=== PATIENT | male | born 1970 | race Hispanic/Latino ===

== ENCOUNTER 2017-08-08 12:43 | Emergency (ER) | payer OTHER ==
[2017-08-08 12:51] VITALS: BP 154/77
[2017-08-08 13:24] LABS: Basophils # (Auto) 0.1 K/mm3 (0.0-0.1); Basophils % (Auto) 0.7 % (0.0-1.8); Eosinophils # (Auto) 0.2 K/mm3 (0.0-0.4); Eosinophils % (Auto) 1.3 % (0.0-4.3); Hemoglobin 14.9 gm/dl (11.8-15.2); Lymphocytes # (Auto) 3.2 K/mm3 (1.2-5.4); Lymphocytes % (Auto) 25.4 % (13.4-35.0); Mean Corpuscular HGB Conc 32 % (32-34); Mean Corpuscular Hemoglobin 29 pg (28-32); Mean Corpuscular Volume 90 fl (84-94); Monocytes # (Auto) 0.9 K/mm3 (0.0-0.8); Monocytes % (Auto) 7.2 % (0.0-7.3); Platelet Count 362 K/mm3 (140-440); Red Blood Count 5.12 M/mm3 (3.65-5.03); Red Cell Distribution Width 16.8 % (13.2-15.2)
--- NOTE | 2017-08-08 13:37 | XRay Report ---
Chest 2 views: History: Shortness of breath. Findings: Borderline cardiomegaly. Trachea is midline. No consolidation, pneumothorax or pleural effusion. Impression: No acute cardiopulmonary findings.
[2017-08-08 13:47] LABS: BUN/Creatinine Ratio 10; Blood Urea Nitrogen 6 mg/dL (9-20); Calcium 9.1 mg/dL (8.4-10.2); Hemolysis Index 13
== END 2017-08-08 19:35 | disposition left against medical advice (07) ==
LOC: ED 12:43
DX: R06.02 Shortness of breath (principal); Z53.21 Procedure and treatment not carried out due to patient leaving prior to being seen by health care provider
CPT/HCPCS: 36415; 71020; 80048; 83880; 84484; 85025; 93005; 93010